=== PATIENT | male | born 1975 | race Caucasian/White ===

== ENCOUNTER 2016-10-19 09:00 | Emergency (ER) | payer SELFPAY ==
[2016-10-19 09:11] VITALS: BP 132/65; PULSE 72; TEMP 98; BMI 29.8
--- NOTE | 2016-10-19 09:33 | EDPRACDOC ---
- General Information Chief Complaint: Upper Extremity Injury Stated Complaint: RIGHT ELBOW PAIN Time Seen by Provider: 10/19/16 09:20 Mode Of Arrival: Car Home Medications: Home Medications Prednisone [Sterapred DS 10 mg/12 day pack] 48 tab PO DIR #1 pack 10/19/16 Allergies/Adverse Reactions: Allergies Allergy/AdvReac Type Severity Reaction Status Date / Time No Known Allergies Allergy Verified 10/19/16 09:11 - History of Present Illness Onset: A COUPLE OF DAYS HPI: RIGHT LATERAL ARM PAIN, 6 WEEKS, WORSE YESTERDAY. CAN'T LIFT MORE THAN 20 LBS. PAIN CURRENTLY 01/07. WEARING BRACE, NOT HELPING. NO INJURY. Dominant Side: Reports: Right ED Past Medical History - History Reviewed Yes Nurses notes reviewed and agree except as marked EDM Review of Systems - Review of Systems ROS Negative Except as Marked: Yes All systems reviewed and were negative except as marked - Physical Exam Constitutional: Alert (Awake), No apparent distress Oriented to: Time, Person, Place Last recorded Vital Signs: Last Vital Signs Temp 98.0 F 10/19/16 09:08 Pulse 72 10/19/16 09:08 Resp 18 10/19/16 09:08 BP 132/65 10/19/16 09:08 Pulse Ox 97 10/19/16 09:08 Oxygen Pulse Oxygen Saturation 97 O2 Device Room Air Oxygen Flow Rate Fraction of Inspired Oxygen ( FIO2) - HEENT Head: Normal ( normocephalic) Eye Exam: Normal (PERRL, EOMI, Sclera white) Oropharynx: Normal (Pharynx:Moist without exudate,Gums-no swelling) Nose: No Symptoms Reported (septum midline) Neck: Normal (FROM, trachea at midline) - Respiratory/Cardiovascular Respiratory: Normal - CTA (BBS clear to auscultation without adventitious sounds ) Cardiovascular: Normal (RRR without murmur, gallop or rub) - GI Auscultation: Normal (NABS) Palpation: Normal (Soft,No rebound or guarding, non distended) Tenderness: Non tender Guillermo's Sign: Negative - Musculoskeletal Back: Normal (Non-Tender) Extremities: Normal (Normal tone, Pulses 2+ No cyanosis or edema, FROM) - Integumentary Skin: Normal, Warm, Dry Lymphatics: Normal (no adenopathy) - Neurologic Memory Impaired: Normal Motor Function: Normal (Normal tone, Pulses 2+ No cyanosis or edema, FROM) Cranial Nerve: Normal (CN II-X11 intact sensation, strength 5/5) Cerebellar: Normal Mood Description: Normal Perception: Normal ED Elbow Problem Exam - Musculoskeletal Elbow Symptoms: Other (TENDER OVER RIGHT LATERAL EPICONDYLE. NEURO VASC INTACT DISTALLY.) Decision Time to Discharge: 09:44 - Departure Yes I personally saw and evaluated the patient. Disposition: Home Condition: Stable Final Diagnosis: Lateral epicondylitis of elbow Qualifiers: Laterality: right Qualified Code(s): M77.11 - Lateral epicondylitis, right elbow Instructions: RICE: Routine Care for Injuries, Tennis Elbow (ED), Tennis Elbow Exercises (GEN) Education/Counseling Given To: Patient Education/Counseling Given Regarding: Diagnosis Referrals: Arun Angeles DO [Staff Physician] - Two Weeks Prescriptions: Prednisone [Sterapred DS 10 mg/12 day pack] 48 tab PO DIR #1 pack
== END 2016-10-19 10:00 | disposition home or self-care (01) ==
LOC: ED 09:00
DX: M77.11 Lateral epicondylitis, right elbow (principal)
CPT/HCPCS: 99282